=== PATIENT | female | born 1955 | race Caucasian/White ===

== ENCOUNTER → 2023-05-25 10:44 | Outpatient (REF) | payer OTHER, SELFPAY | LOC: RAD 10:44 | PROVIDERS: ATTENDING PHYSICIAN Urology; FAMILY PHYSICIAN Family Medicine | DX: N13.30 Unspecified hydronephrosis (principal) | CPT/HCPCS: 78708; A9539 ==

== ENCOUNTER → 2023-07-16 09:32 | Outpatient (REF) | payer OTHER, SELFPAY | LOC: WDC 09:32 | PROVIDERS: ATTENDING PHYSICIAN Internal Medicine Hematology & Oncology; FAMILY PHYSICIAN Family Medicine | DX: N63.10 Unspecified lump in the right breast, unspecified quadrant (principal) | CPT/HCPCS: 76642; 77061; 77065 ==

== ENCOUNTER → 2023-09-22 16:30 | Outpatient (REF) | payer OTHER, SELFPAY | LOC: RAD 16:30 | PROVIDERS: ATTENDING PHYSICIAN Urology; FAMILY PHYSICIAN Family Medicine; REFERRING PHYSICIAN Internal Medicine Cardiovascular Disease | DX: N13.30 Unspecified hydronephrosis (principal) | CPT/HCPCS: 76770 ==

== ENCOUNTER → 2023-11-30 10:22 | Outpatient (REF) | payer MEDICARE, SELFPAY | LOC: RAD 10:22 | PROVIDERS: ATTENDING PHYSICIAN Urology; FAMILY PHYSICIAN Family Medicine | DX: N13.30 Unspecified hydronephrosis (principal); N13.5 Crossing vessel and stricture of ureter without hydronephrosis | CPT/HCPCS: 78708; A9539 ==

== ENCOUNTER → 2023-12-01 08:53 | Outpatient (REF) | payer MEDICARE, SELFPAY | LOC: WDC 08:53 | PROVIDERS: ATTENDING PHYSICIAN Internal Medicine Hematology & Oncology; FAMILY PHYSICIAN Family Medicine | DX: R92.8 Other abnormal and inconclusive findings on diagnostic imaging of breast (principal) | CPT/HCPCS: 76642 ==

== ENCOUNTER → 2024-04-05 14:03 | Outpatient (REF) | payer OTHER, SELFPAY ==
[2024-04-01 09:46] LABS: ALT (SGPT) 16 U/L (0-35); AST (SGOT) 26 U/L (14-36); Albumin 4.3 g/dl (3.5-5.0); Alkaline Phosphatase 114 U/L (38-126); Blood Urea Nitrogen 14 mg/dl (7-17); Calcium 9.6 mg/dl (8.4-10.2); Carbon Dioxide 23 mmol/L (22-30); Chloride 106 mmol/L (98-107); Glucose 94 mg/dl (70-99); Potassium 4.3 mmol/L (3.5-5.1); Sodium 136 mmol/L (135-145); Total Bilirubin 0.9 mg/dl (0.2-1.3); Total Protein 6.9 g/dl (6.3-8.2); eGFR > 60.00
[2024-04-01 10:16] LABS: Glycohemoglobin (HgbA1c) 5.4 % (4.0-5.6)
== END ==
LOC: RAD 14:03
PROVIDERS: ATTENDING PHYSICIAN Urology; FAMILY PHYSICIAN Family Medicine
DX: N13.5 Crossing vessel and stricture of ureter without hydronephrosis (principal)
CPT/HCPCS: 36415; 74178; 80053; 83036; Q9967

== ENCOUNTER → 2024-04-12 14:06 | Outpatient (REF) | payer OTHER, SELFPAY | LOC: RCS 14:06 | PROVIDERS: ATTENDING PHYSICIAN Internal Medicine Cardiovascular Disease; FAMILY PHYSICIAN Family Medicine | DX: I34.0 Nonrheumatic mitral (valve) insufficiency (principal); Z95.3 Presence of xenogenic heart valve | CPT/HCPCS: 93306 ==

== ENCOUNTER 2024-04-29 06:45 | Day surgery (SDC) | payer OTHER, SELFPAY | END 2024-04-29 09:18 | disposition home or self-care (01) | LOC: CATH 06:45 | PROVIDERS: ATTENDING PHYSICIAN Nuclear Medicine Nuclear Cardiology; FAMILY PHYSICIAN Family Medicine; OTHER PHYSICIAN Internal Medicine Cardiovascular Disease | DX: I34.0 Nonrheumatic mitral (valve) insufficiency (principal); I48.0 Paroxysmal atrial fibrillation; Z95.3 Presence of xenogenic heart valve; Z85.3 Personal history of malignant neoplasm of breast; Z87.891 Personal history of nicotine dependence; Z85.828 Personal history of other malignant neoplasm of skin; Z79.82 Long term (current) use of aspirin | CPT/HCPCS: 93312; 93320; 93325 ==

== ENCOUNTER 2024-09-07 12:09 | Emergency (ER) | payer OTHER, SELFPAY ==
[2024-09-07 12:13] VITALS: BP 135/78
--- NOTE | 2024-09-07 13:18 | ED.GENMED ---
History of Present Illness
General
Chief Complaint: Crisis Evaluation
Source: patient
Exam Limitations: none
Time Seen by Provider: 09/07/24 12:34
Nursing documentation reviewed up to this point in time: agreed with
History of Present Illness
History of Present Illness:
69-year-old female brought in by police patient states she was hot and was trying to get into the neighbors pool because her pool was closed, apparently her has some medical issues here she is cooperative, stable vital signs without
complaints
Past History
Past History
ED Past Medical History: Arrthythmia
ED Past Surgical History: Cardiac
Social History
Tobacco: Non-smoker
Alcohol: None
Drug: None
Personal:
Living: with family
Employment: Retired
Review of Systems
Review of Systems
All Other Systems: Not applicable
Constitutional: Denies fever or fatigue
EENT: Reports no symptoms
Respiratory: Reports no symptoms
Cardiac: Reports no symptoms
ABD/GI: Reports no symptoms
Neurological: Reports no symptoms
Phy Exam
Physical Exam
Physical Exam:
Physical Exam
General: Disheveled but cooperative female watching TV
Neck: No overt signs of head or neck trauma
Heart: Regular
Lungs: no acute respiratory distress.
Neuro: alert and oriented. no focal neurological deficits
Skin: no rash
Psychiatric: Flat affect cooperative
Extremities: no edema
Course
Orders/Labs/Results
Orders:
Orders
09/07/24 12:52
CT Head W/o Iv Contrast Urgent
Comment:
Reason For Exam: confusion
0.9% Sodium Chloride 1000 ml [Nss] 1,000 ml IV BOLUS
09/07/24 13:06
Acetaminophen Urgent
Alcohol Urgent
Complete Blood Count/With Diff Urgent
Comprehensive Metabolic Panel Urgent
Salicylate Urgent
Abnormal Lab Results
09/07/24
13:06
MCH 31.5 H pg
(27.0-31.0)
MPV 10.6 H fL
(7.4-10.4)
Lymphocytes % 17.4 L %
(20.5-51.1)
Sodium 134 L mmol/L
(135-145)
Carbon Dioxide 19 L mmol/L
(22-30)
Glucose 130 H mg/dl
(70-99)
Salicylates < 1.0 L mg/dl
(2.0-20.0)
Acetaminophen < 10 L ug/ml
(10-30)
09/07/24 13:06
09/07/24 13:06
Vital Signs
Initial and Last Documented VS:
Initial Vital Signs
Temp Pulse Resp BP Pulse Ox
98.5 F 106 20 135/78 98
09/07/24 12:13 09/07/24 12:13 09/07/24 12:13 09/07/24 12:13 09/07/24 12:13
Last Documented Vital Signs
Temp Pulse Resp BP Pulse Ox
98.5 F 106 20 135/78 98
09/07/24 12:13 09/07/24 12:13 09/07/24 12:13 09/07/24 12:13 09/07/24 13:19
MDM/Problems Addressed
Differential Diagnosis Includes:
Dehydration electrolyte abnormality brain mass
MDM/Problems Addressed:
Bizarre behavior concerns for confusion
*Radiology
Radiology exam reviewed: radiology read reviewed
*Pulse Oximetry
SaO2: 98
Oxygen Mode of Delivery: Room air
Patient hypoxic: no
*Critical Care Note
Total Time (30-74mins, 75-104mins- exclusive of procedures): Not Applicable
Update Note
Update Note:
Update will check electrolytes CT of the head
2:15 PM update labs noted patient refused CAT scan no apparent medical nor acute psychiatric issues necessitating admission
ED Attending Note
-
Portions of this chart may have been created with voice recognition software.� Occasional wrong word or��sound alike� substitutions may have occurred due to the inherent limitations of voice recognition software.
Discharge Plan
Departure
Patient Disposition: Home (Routine Discharge)
Date of Disposition: 09/07/24
Time of Disposition: 14:16
Patient with high blood pressure during this ER visit?: No
Condition: Good
Discharge Problem:
Dehydration
Instructions: Dehydration in adults - ED discharge instructions, Why Water Is Important to Health
Prescriptions:
No Action
[place] Mushroom
8 cap PO HS
aspirin [Aspir-Low] 81 mg Tablet,Delayed Release (Dr/Ec)
81 mg PO DAILY
metoprolol tartrate 25 MG tablet
12.5 mg PO PRN PRN (Reason: HR)
Rx Instructions:
take one half of 25mg tablet twice daily
Activity Restrictions/Additional Instructions:
Drink plenty of fluids take your medications as prescribed
Interventions
Interventions:
*Risk Screen - Suicide Last Done: 09/07/24 12:10
*General Assessment Last Done: 09/07/24 12:27
ED-Psychological Assessment Last Done: 09/07/24 12:27
Discharge Date and Time
Print Language: OCCITAN
[2024-09-07 13:22] LABS: Hematocrit 38.5 % (37.0-47.0); Hemoglobin 13.8 g/dL (12.0-16.0); Mean Corp Hgb Conc. 35.8 g/dL (33.0-37.0); Mean Corpuscular Volume 87.9 fL (81.0-99.0); Nucleated Red Blood Cells % 0 %; Platelet Count 204 10^3/uL (130-400); Red Cell Dist. Width 12.7 % (11.5-14.5)
[2024-09-07 13:41] LABS: ALT (SGPT) 17 U/L (0-35); AST (SGOT) 26 U/L (14-36); Acetaminophen < 10 ug/ml (10-30); Albumin 4.6 g/dl (3.5-5.0); Alkaline Phosphatase 88 U/L (38-126); Blood Urea Nitrogen 13 mg/dl (7-17); Calcium 9.8 mg/dl (8.4-10.2); Carbon Dioxide 19 mmol/L (22-30); Chloride 107 mmol/L (98-107); Glucose 130 mg/dl (70-99); Potassium 3.8 mmol/L (3.5-5.1); Salicylate < 1.0 mg/dl (2.0-20.0); Sodium 134 mmol/L (135-145); Total Protein 7.3 g/dl (6.3-8.2); eGFR > 60.00
== END 2024-09-07 16:14 | disposition home or self-care (01) ==
LOC: EMR 12:09
PROVIDERS: EMERGENCY PHYSICIAN Emergency Medicine; FAMILY PHYSICIAN Family Medicine
DX: E86.0 Dehydration (principal); R46.89 Other symptoms and signs involving appearance and behavior; Z65.3 Problems related to other legal circumstances
CPT/HCPCS: 99283; 80053; 80143; 80179; 82077; 85025

== ENCOUNTER 2024-10-15 14:50 | Emergency (ER) | payer OTHER, SELFPAY ==
[2024-10-15 14:52] VITALS: BP 131/81
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
[2024-10-15 19:14] VITALS: BP 142/79
== END 2024-10-15 19:23 | disposition home or self-care (01) ==
LOC: EMR 14:50
PROVIDERS: EMERGENCY PHYSICIAN Emergency Medicine
DX: R45.1 Restlessness and agitation (principal); R03.0 Elevated blood-pressure reading, without diagnosis of hypertension; G62.9 Polyneuropathy, unspecified; F17.200 Nicotine dependence, unspecified, uncomplicated; Z63.0 Problems in relationship with spouse or partner; Z85.3 Personal history of malignant neoplasm of breast; Z85.79 Personal history of other malignant neoplasms of lymphoid, hematopoietic and related tissues; Z85.828 Personal history of other malignant neoplasm of skin
CPT/HCPCS: 99283

== ENCOUNTER 2024-10-22 17:18 | Emergency (ER) | payer OTHER, SELFPAY ==
[2024-10-22 17:19] VITALS: BP 160/94
--- NOTE | 2024-10-22 17:30 | PTCARENOTE ---
Pt requested to use restroom on walk back from triage, pt let into bathroom. Pt yelling at this RN 'close the fjuliette door you bitch'. I instructed pt that for safety reason I cannot close the door. Pt then threw the urine specimen cup across the
room into the crash and grabbed her groin area stating 'I had to pee so fjuliette bad there was none to go in the cup'. Pt instructed we will need a urine specimen at some point, pt laughed at this RN. Pt instructed to go into ED 34, pt given scrubs
to change into and pt yelled 'I'm not getting in those things I'm not a child fk this'. This RN explained it is protocol for the pt to be changed into paper scrubs, pt then yelled more profanity at this RN and threw her sunglasses at this RN.
first officer and flight instructor that brought pt in to ER was requested to come help with pt escalation but officer was in crisis filing 302. Security at bedside. Dr. Price brought to bedside to eval pt. Pt banging on ED 34 window and yelling in room at staff
observing her. Dr. Price with orders to place pt in restraints and chemically restrain. Additional RNs and desk officer along with security here to help with pt. Pt not cooperating and being belligerent with staff and Dr. Price. While restraining pt, pt
attempting to bite staff, kick, hit and head butt. Pt screaming profanity at staff. Pt restrained and placed on pulse ox and BP cuff. 1:1 at bedside.
--- NOTE | 2024-10-22 17:33 | ED.GENMED ---
History of Present Illness
General
Chief Complaint: Crisis Evaluation
Source: patient, records and police
Exam Limitations: clinical condition
Time Seen by Provider: 10/22/24 17:33
Nursing documentation reviewed up to this point in time: agreed with
History of Present Illness
History of Present Illness:
69-year-old female with history as noted presents to the ER in police custody�police filed a 302 on the patient apparently for bizarre behavior and expression of suicidal ideation. Unfortunately the patient is extremely agitated here in the
emergency room, behavior is bizarre and she is and having flight of ideas, pressured speech consistent with acute psychosis--for this reason she cannot meaningfully participate in history despite multiple attempts at engaging her. Review of her
chart shows that she was here a few days ago acutely agitated and declined care and was discharged. She has had multiple visits for various issues over the past year. She apparently has a history of metastatic cancer not under treatment.
UPDATE
I was able to speak directly with the police officers who report that they were called to the patient's home because she was acting erratically and aggressively. Apparently on arrival she disclosed that she was going to kill herself and/or her
. Apparently she said she was going to 'make a weapon' and at varying points asked the police officers to shoot her. On this basis they are to file by police. It sounds like police have been called multiple times for bizarre behavior
recently.
Past History
Past History
ED Past Medical History: Arrthythmia
ED Past Surgical History: Cardiac
Patient has exhibited threatening behavior?: No
Social History
Tobacco: Non-smoker
Alcohol: None
Drug: None
Personal:
Living: with family
Employment: Retired
Review of Systems
Review of Systems
Unable to obtain full review of systems at this time due to: other (Acute psychosis)
All Other Systems: Not applicable
Phy Exam
Physical Exam
Physical Exam:
General: Awake, alert; patient extremely aggressive, banging on the negron, screaming at staff and even throwing things at staff
Head: Normocephalic, atraumatic
Eyes: Conjunctiva normal
Throat: Airway intact
Neck: Trachea midline, appears to be moving her neck comfortably
Lungs: Breathing comfortably not in any respiratory distress
Heart: Regular rate
Neuro: Grossly intact, ambulatory
Skin: No clear signs of trauma
Extremities: Atraumatic with no deformities
Psych: Pressured speech, flight of ideas, aggressive behavior; poor insight and judgment
UPDATE
Reassessed patient after sedation
General: Laying in bed not in distress, sleeping
Head: Normocephalic, atraumatic
Eyes: Conjunctiva normal, pupils 4 mm equal and reactive to light bilaterally
Throat: Airway intact, handling secretions
Neck: Trachea midline, no JVD appreciated
Lungs: Clear to auscultation bilaterally, no wheezing, rales, rhonchi
Heart: Regular rate and rhythm, no murmurs, gallops, or rubs
Abd: Soft, non distended, no masses appreciated
Skin: Patient is chronic venous stasis changes in the legs; skin is generally dry
Extremities: +1 edema in the legs bilaterally, good pulses throughout all extremities
Scores
Heart Failure Risk
Heart Failure Risk Score: Not Applicable
Heart Score for Chest Pain Patients
STEMI patient?: Not applicable
Withdrawal Assessment of Alcohol
Withdrawal Assessment Completed?: Not applicable
Course
Orders/Labs/Results
Orders:
Orders
10/22/24 17:38
Electrocardiogram (*1) Urgent
Reason for Study: QTc Monitoring
EKG- Treatment ONCE
Drug Screen, Urine [Urine Drug Abuse Screen] Urgent
Haloperidol Lactate [Haldol] 5 mg .ROUTE .STK-MED ONE
Haloperidol Lactate [Haldol] 5 mg IM NOW STA
Midazolam HCl [Versed] 5 mg IM NOW STA
10/22/24 17:39
Crisis Consult Routine
Reason for Consult: psychosis
ED Special Safety Observation ONCE
Observation level: One to One
Midazolam HCl [Versed] 5 mg .ROUTE .STK-MED ONE
10/22/24 17:45
Midazolam HCl [Versed] 5 mg IM NOW STA
10/22/24 17:46
1:1 Observation - Suicide/ Violent Behavior As Directed
Restraints - Violent As Directed
Restraint Type-: Locked-4 point/4 rails
Apply From (date): 10/22/24
Apply from (time): 17:46
Remove (date): 10/22/24
Remove (time): 21:46
10/22/24 17:48
CT Head W/o Iv Contrast Urgent
Comment:
Reason For Exam: behavioral change
10/22/24 18:30
Acetaminophen Urgent
Alcohol Urgent
Complete Blood Count/With Diff Urgent
Comprehensive Metabolic Panel Urgent
Abnormal Lab Results
10/22/24
18:30
RBC 4.06 L 10^6/uL
(4.20-5.40)
Hct 35.8 L %
(37.0-47.0)
Acetaminophen < 10 L ug/ml
(10-30)
10/22/24 18:30
10/22/24 18:30
Vital Signs
Initial and Last Documented VS:
Initial Vital Signs
Temp Pulse Resp BP Pulse Ox
37.0 C 95 18 160/94 98
10/22/24 17:19 10/22/24 17:19 10/22/24 17:19 10/22/24 17:19 10/22/24 17:19
Last Documented Vital Signs
Temp Pulse Resp BP Pulse Ox
37.0 C 74 16 160/94 96
10/22/24 17:19 10/22/24 19:00 10/22/24 19:00 10/22/24 17:19 10/22/24 19:00
MDM/Problems Addressed
Differential Diagnosis Includes:
Acute psychosis, drug/alcohol intoxication, behavioral disorder
MDM/Problems Addressed:
69-year-old female presents via police on a 302 apparently filed for aggressive behavior and suicidal thoughts. Patient cannot participate in history due to extreme aggression and bizarre behavior. She has been violent and abusive with staff here
and on multiple attempts at redirection unfortunately we have not been able to calm her. For this reason we will proceed with chemical sedation for staff and patient's safety. Will place in restraints for the time being and de-escalate as able.
Case discussed with crisis for consultation. Will plan to pursue some medical screening once patient is sedated given her extensive history to rule out any organic cause for her behaviors. Will monitor very closely on one-to-one observation and
reassess frequently.
Patient resting comfortably after chemical sedation�restraints removed. Continue to monitor.
Labs reviewed: CBC and CMP no clinically significant abnormalities. CT head no acute abnormalities. EKG shows acceptable QTc after Haldol. Continue to monitor. Patient evaluated by crisis, telepsychiatry consult placed.
Chronic conditions affecting care:
Breast cancer
Acute Exacerbation and/or Progression of Chronic Illness: HTN
*Pulse Oximetry
SaO2: 98
Oxygen Mode of Delivery: Room air
Patient hypoxic: no (98%)
*EKG
Interpreted by ED Provider?: Yes
Heart Rate: 89
Rate: normal
Rhythm: sinus
[place]: right axis deviation
Interval: normal interval and normal QT interval
QRS Pattern: normal QRS
Ischemia: no ischemia
*Critical Care Note
Total Time (30-74mins, 75-104mins- exclusive of procedures): Not Applicable
Data Reviewed
Review of Other/Old Records Reveals: Labs and Records
Source: patient and records
Patient Management
Discussion with other providers: Other (Discussed with crisis)
ED Attending Note
-
Portions of this chart may have been created with voice recognition software.� Occasional wrong word or��sound alike� substitutions may have occurred due to the inherent limitations of voice recognition software.
Discharge Plan
Departure
Patient Disposition: Psych Facility
Date of Disposition: 10/22/24
Time of Disposition: 19:15
Patient Status:: 302
Discharge Problem:
Acute psychosis
Prescriptions:
No Action
[place] Tail Mushroom
8 cap PO HS
aspirin [Aspir-Low] 81 mg Tablet,Delayed Release (Dr/Ec)
81 mg PO DAILY
metoprolol tartrate 25 MG tablet
12.5 mg PO PRN PRN (Reason: HR)
Rx Instructions:
take one half of 25mg tablet twice daily
Referrals:
UNKNOWN - PT NOT,INTERVIEWE [Family Provider]
Interventions
Interventions:
*Risk Screen - Suicide Last Done: 10/22/24 17:22
*General Assessment Last Done: 10/22/24 18:00
*Neglect/Abuse Screening Last Done: 10/22/24 17:22
*ED- Fall Risk Assessment Last Done: 10/22/24 18:00
*ED COVID-19 Vaccine History Last Done: 10/22/24 18:00
ED-Psychological Assessment Last Done: 10/22/24 18:00
Discharge Date and Time
Print Language: NORWEGIAN
[2024-10-22] MEDS: HALDOL 5 MG IM (17:49)
[2024-10-22] MEDS: VERSED 5 MG IM (17:50)
[2024-10-22 18:42] LABS: Hematocrit 35.8 % (37.0-47.0); Hemoglobin 12.5 g/dL (12.0-16.0); Mean Corp Hgb Conc. 34.9 g/dL (33.0-37.0); Mean Corpuscular Volume 88.2 fL (81.0-99.0); Nucleated Red Blood Cells % 0 %; Platelet Count 190 10^3/uL (130-400); Red Cell Dist. Width 13.3 % (11.5-14.5)
--- NOTE | 2024-10-22 18:48 | EDRN ---
4 point restraints taken off of pt, pt calm and sleeping. Crisis at bedside.
[2024-10-22 19:11] LABS: ALT (SGPT) 17 U/L (0-35); AST (SGOT) 25 U/L (14-36); Acetaminophen < 10 ug/ml (10-30); Albumin 4.2 g/dl (3.5-5.0); Alkaline Phosphatase 90 U/L (38-126); Blood Urea Nitrogen 13 mg/dl (7-17); Calcium 9.8 mg/dl (8.4-10.2); Carbon Dioxide 22 mmol/L (22-30); Chloride 106 mmol/L (98-107); Glucose 90 mg/dl (70-99); Potassium 3.6 mmol/L (3.5-5.1); Sodium 135 mmol/L (135-145); Total Protein 6.7 g/dl (6.3-8.2); eGFR > 60.00
[2024-10-22 21:00] VITALS: BP 145/75
--- NOTE | 2024-10-22 21:59 | EDRN ---
Pt finally agreed to change into paper scrubs. Pt refused to take off bra or underwear. Pt provided urine sample.
--- NOTE | 2024-10-23 00:30 | EDRN ---
Patient asking for something to drink, was provided with water, 1:1 remains
--- NOTE | 2024-10-23 01:48 | EDRN ---
Patient is sleeping at this time, 1:[address]
--- NOTE | 2024-10-23 03:00 | EDRN ---
Patient provided with turkey sandwich, resting comfortably at this time, 1:1 maintained
[2024-10-23 05:22] VITALS: BP 126/81
[2024-10-23 08:00] VITALS: BP 126/85
== END 2024-10-23 21:41 ==
LOC: EMR 17:18
PROVIDERS: EMERGENCY PHYSICIAN Emergency Medicine
DX: F23 Brief psychotic disorder (principal); R45.851 Suicidal ideations; F32.A Depression, unspecified; I10 Essential (primary) hypertension; C50.919 Malignant neoplasm of unspecified site of unspecified female breast; Z78.1 Physical restraint status; Z91.148 Patient's other noncompliance with medication regimen for other reason; Z63.0 Problems in relationship with spouse or partner; Z79.82 Long term (current) use of aspirin; Z95.2 Presence of prosthetic heart valve
CPT/HCPCS: 99285; 96372 ×2; 70450; 80053; 80143; 80306; 82077; 85025; 93005